=== PATIENT | female | born 1980 | race Caucasian/White ===

== ENCOUNTER 2016-04-30 11:42 | Emergency (ER) | payer MEDICARE, OTHER | END 2016-04-30 13:19 | disposition home or self-care (01) | LOC: ER 11:42 | DX: S93.602D Unspecified sprain of left foot, subsequent encounter (principal); W50.0XXD Accidental hit or strike by another person, subsequent encounter; Z79.3 Long term (current) use of hormonal contraceptives; Z88.2 Allergy status to sulfonamides; Z88.5 Allergy status to narcotic agent; Z88.8 Allergy status to other drugs, medicaments and biological substances | CPT/HCPCS: 73630; 99070; 99283; 99283-25 ==